=== PATIENT | male | born 1975 | race Two or more races ===

== ENCOUNTER 2022-06-21 20:18 | Emergency (ER) | payer OTHER ==
[~2022-06-21] VITALS: Ht 175.3 cm; Wt 114.0 kg
[2022-06-21 20:25] VITALS: BP 117/66
== END 2022-06-22 02:38 | disposition home or self-care (01) ==
LOC: ER 21:14
DX: K42.9 Umbilical hernia without obstruction or gangrene (principal); Z68.37 Body mass index [BMI] 37.0-37.9, adult
CPT/HCPCS: 99283

== ENCOUNTER 2023-11-26 04:48 | Emergency (ER) | payer OTHER ==
[~2023-11-26] VITALS: Ht 160 cm; Wt 120.0 kg
[2023-11-26 04:50] VITALS: TEMP 98.4; O2SAT 98
[2023-11-26 05:43] LABS: CHLORIDE 107 mEq/L (98-107); POTASSIUM 3.5 mEq/L (3.5-5.1); SODIUM 140 mEq/L (136-145)
[2023-11-26 05:44] LABS: CARBON DIOXIDE 27 mEq/L (21-32)
[2023-11-26] MEDS: SODIUM CHLORIDE 0.9% 1,000 ML IV ONE (05:48)
[2023-11-26 05:49] LABS: CREATININE 0.8 mg/dL (0.6-1.3); GLUCOSE 109 mg/dL (70-105); UREA NITROGEN BLOOD 12 mg/dL (9-23)
[2023-11-26 05:51] LABS: ALANINE AMINOTRANSFERASE 16 IU/L (10-49); ALBUMIN 4.4 g/dL (3.2-4.8); ASPARTATE AMINOTRANSFERASE 19 IU/L (<34); BASOPHILS % 0.8 % (0.0-2.0); BILIRUBIN DIRECT 0.1 mg/dL (<=3.0); BILIRUBIN TOTAL 0.3 mg/dL (0.1-1.0); EOSINOPHILS % 3.5 % (0.0-5.0); HEMATOCRIT. 39.3 % (42.0-52.0); LYMPHOCYTES % 20.7 % (20.0-50.0); MEAN CORPUSCULAR HEMOGLOBIN 27.5 pg (28.0-32.0); MEAN CORPUSCULAR HGB CONC 33.1 g/dL (31.0-37.0); MEAN CORPUSCULAR VOLUME 83.1 fL (80.0-94.0); MEAN PLATELET VOLUME 8.7 fl (7.4-10.4); MONOCYTES % 6.4 % (2.0-8.0); NEUTROPHILS % 68.6 % (40.0-76.0); PLATELET 264 x1000/uL (130-400); PROTEIN TOTAL 7.9 g/dL (6.0-8.3); RED BLOOD CELL COUNT 4.72 mill/uL (4.7-6.1); RED CELL DISTRIBUTION WIDTH 15.3 % (11.6-14.6); WHITE BLOOD COUNT 9.5 x1000/uL (4.5-11.0)
[2023-11-26] MEDS ORDERED: DOCU-138 MT (07:06)
[2023-11-26 07:16] VITALS: BP 107/57; PULSE 91; RESP 15
[2023-11-26] MEDS: MORPHINE SULFATE 4 MG/ML INJ (FOR IV/IM USE) IV STA (07:16)
== END 2023-11-26 07:24 | disposition home or self-care (01) ==
LOC: ER 04:48
DX: K42.9 Umbilical hernia without obstruction or gangrene (principal)
CPT/HCPCS: 99284; 74176; 96360; 71045; 80076; 80048; 83690; 85025; 36415; J7030